=== PATIENT | female | born 1990 | race Caucasian/White ===

== ENCOUNTER 2019-01-31 16:58 | Emergency (ER) | payer OTHER ==
[~2019-01-31] VITALS: Ht 165.1 cm; Wt 95.4 kg
[2019-01-31 17:20] VITALS: BP 138/83
--- NOTE | 2019-01-31 17:23 | NUR ---
PT AMBULATES BACK TO THE LOBBY
--- NOTE | 2019-01-31 18:03 | NUR ---
PT AMBULATED TO BED 09.
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
--- NOTE | 2019-01-31 19:15 | NUR ---
bedside report received from ARIAN Waite. transfer of care at this time
[2019-01-31] MEDS ORDERED: BACITRACIN OINT 500 UNITS/GM PKT TP ONE (19:20)
[2019-01-31] MEDS ORDERED: ONDANSETRON 4 MG ODT PO ONE (19:20)
[2019-01-31] MEDS ORDERED: HYDROcodone/APAP 5/325 MG 1 TAB TAB PO ONE (19:20)
--- NOTE | 2019-01-31 20:23 | NUR ---
PLACED A VELCRO VOLAR SPLINT ON PT'S LEFT WRIST, FITTED PT FOR A SLING WELL.
[2019-01-31 20:36] VITALS: BP 119/65
--- NOTE | 2019-01-31 20:36 | NUR ---
Patient discharged with v/s stable. Written and verbal after care instructions given and explained. Patient alert, oriented and verbalized understanding of instructions. Ambulatory with steady gait. All questions addressed prior to discharge. ID band removed. Patient advised to follow up with PMD. Rx of Ibuprofen and bactrictian oinment given. Patient educated on indication of medication including possible reaction and side effects. Opportunity to ask questions provided and answered.
== END 2019-01-31 20:36 | disposition home or self-care (01) ==
LOC: MED 16:58
DX: S66.912A Strain of unspecified muscle, fascia and tendon at wrist and hand level, left hand, initial encounter (principal); S70.02XA Contusion of left hip, initial encounter; R07.81 Pleurodynia; V86.59XA Driver of other special all-terrain or other off-road motor vehicle injured in nontraffic accident, initial encounter; Y93.89 Activity, other specified; Y92.89 Other specified places as the place of occurrence of the external cause; Y99.8 Other external cause status
CPT/HCPCS: 29125; 73080; 73090; 73110; 73130; 99283; Q0092; Q0162